=== PATIENT | female | born 1995 | race Caucasian/White ===

== ENCOUNTER 2017-04-06 13:46 | Emergency (ER) | payer MEDICAID ==
[2017-04-06 14:06] VITALS: BP 123/88
[2017-04-06] MEDS ORDERED: Ketorolac 60 MG/2 ML SDV IM ONE (14:27)
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
--- NOTE | 2017-04-06 14:49 | CR ---
Pelvis is intact. Left hip is intact.
--- NOTE | 2017-04-06 14:50 | CR ---
Mild medial compartment joint space narrowing left knee. No evidence for fracture.
[2017-04-06] MEDS ORDERED: Bumetanide 1 MG/4 ML MDV IVPUSH ONE (15:33)
== END 2017-04-06 15:41 | disposition home or self-care (01) ==
LOC: JP.ED 13:46
DX: S80.00XA Contusion of unspecified knee, initial encounter (principal); V09.00XA Pedestrian injured in nontraffic accident involving unspecified motor vehicles, initial encounter
CPT/HCPCS: 73502; 73562; 96372; 96374; 99283; J1885; 99282

== ENCOUNTER 2022-01-29 18:14 | Emergency (ER) | payer OTHER, MEDICAID ==
[2022-01-29 18:49] VITALS: BP 122/87; PULSE 85
== END 2022-01-29 20:55 ==
LOC: JP.ED 18:14
DX: T76.21XA Adult sexual abuse, suspected, initial encounter (principal); Z88.2 Allergy status to sulfonamides; Z72.0 Tobacco use
CPT/HCPCS: 99283; 99284